=== PATIENT | male | born 1965 | race Hispanic/Latino ===

== ENCOUNTER 2022-04-05 06:49 | Emergency (ER) | payer BC ==
[~2022-04-05] VITALS: Ht 175.3 cm; Wt 93.0 kg
[2022-04-05] MEDS ORDERED: KETOROLAC TROMETHAMINE 30 MG/ML VIAL IM STA (07:07)
[2022-04-05] MEDS ORDERED: METHOCARBAMOL750 MG PO (07:50)
== END 2022-04-05 07:55 | disposition home or self-care (01) ==
LOC: ER 06:53
DX: M54.50 Low back pain, unspecified (principal); X50.1XXA Overexertion from prolonged static or awkward postures, initial encounter; Y93.E1 Activity, personal bathing and showering; Y92.091 Bathroom in other non-institutional residence as the place of occurrence of the external cause
CPT/HCPCS: 99283; J1885